=== PATIENT | male | born 1990 | race Caucasian/White ===

== ENCOUNTER 2017-03-26 11:22 | Emergency (ER) | payer BC ==
[~2017-03-26] VITALS: Ht 175.3 cm; Wt 68.2 kg
[~2017-03-26 11:22] MED LIST: NORCO 325 MG-51 TAB PO; PREDNISONE20 MG PO
[2017-03-26 11:27] VITALS: BP 129/84; PULSE 67; TEMP 98.2
[2017-03-26] MEDS ORDERED: CLEOCIN HC150 MG/CAP PO (11:45)
== END 2017-03-26 11:58 | disposition home or self-care (01) ==
LOC: COL.ER 11:22
DX: K04.7 Periapical abscess without sinus (principal); F17.210 Nicotine dependence, cigarettes, uncomplicated